=== PATIENT | male | born 1970 | race Two or more races ===

== ENCOUNTER 2022-07-06 10:59 | Inpatient (IN) | payer MEDICAID, OTHER ==
[~2022-07-06] VITALS: Ht 170.2 cm; Wt 93.5 kg
[2022-07-06 13:01] LABS: Urine Bacteria FEW /hpf (None Seen); Urine Blood 3+ /uL (Negative); Urine Mucus FEW (None Seen); Urine Specific Gravity 1.018 (1.001-1.035); Urine WBC 5 /hpf (0 - 3)
[2022-07-06 13:18] LABS: Basophils # (auto) 0.1 10 ^3/uL (0-0.2); Basophils % (auto) 0.6 % (0.0-2.0); Eosinophils # (auto) 0.2 10 ^3/uL (0-0.8); Eosinophils % (auto) 2.6 % (0.0-7.0); Hematocrit 51.6 % (41.0-53.0); Hemoglobin 16.8 g/dL (13.5-17.5); Lymphocytes # (auto) 2.6 10 ^3/uL (0.4-5.4); Lymphocytes % (auto) 27.9 % (10.0-50.0); Mean Corpuscular Hemoglobin 29.5 pg (28.0-32.0); Mean Corpuscular Hgb Conc. 32.6 g/dL (32.0-36.0); Mean Corpuscular Volume 90.6 fL (80.0-100.0); Monocytes # (auto) 0.8 10 ^3/uL (0-1.3); Monocytes % (auto) 8.2 % (0.0-12.0); Neutrophils # (auto) 5.7 10 ^3/uL (1.6-8.6); Neutrophils % (auto) 60.7 % (37.0-80.0); Red Blood Cells 5.69 10^6/uL (4.5-5.90); Red Cell Distribution Width 13.4 % (11.8-14.3); White Blood Cell 9.3 10^3/uL (4.4-10.8)
[2022-07-06 13:31] LABS: Calcium 9.2 mg/dL (8.5-10.1); Potassium 3.9 mmol/L (3.5-5.1)
[2022-07-06 13:34] LABS: BUN/Creatinine Ratio 11.7; Bilirubin, Total 0.5 mg/dL (0.2-1.0); Total Protein 8.1 g/dL (6.4-8.2)
[2022-07-06] MEDS ORDERED: LACTATED RINGER'S 1,000 ML IV ONE (17:00)
[2022-07-06] MEDS ORDERED: TAMSULOSIN HYDROCHLORIDE 0.4 MG CAP PO ONE (17:00)
[2022-07-06] MEDS ORDERED: HYDROcodone-ACET 5/325MG TAB PO ONE (17:00)
[2022-07-06] MEDS ORDERED: KETOROLAC TROMETH 30 MG/ML 1ML VIAL IV ONE (17:00)
[2022-07-06] MEDS ORDERED: cefTRIAXone 1GM/50ML D5W 50 ML IV ONE (17:00)
[2022-07-06] MEDS ORDERED: DOCUSATE SOD 100 MG CAP PO PRN (20:15)
[2022-07-06] MEDS ORDERED: SODIUM CHLORIDE 0.9% 1,000 ML IV SCH (20:15)
[2022-07-06] MEDS ORDERED: ONDANSETRON HCL 4 MG/2 ML VIAL IV PRN (20:15)
[2022-07-07 00:13] VITALS: BP 144/88
[2022-07-07 00:48] VITALS: BP 144/88
[2022-07-07 05:02] VITALS: BP 128/86
[2022-07-07] MEDS: HYDROcodone-ACET 5/325MG TAB PO PRN (05:05)
[2022-07-07 09:00] VITALS: BP 131/83
[2022-07-07] MEDS ORDERED: TAMSULOSIN HYDROCHLORIDE 0.4 MG CAP PO ONE (12:00)
[2022-07-07 13:00] VITALS: BP 128/85
[2022-07-07] MEDS ORDERED: MANNITOL 20% SOLN 100 gm/500ml 100 ML IV ONE (13:30)
[2022-07-07] MEDS: SODIUM CHLORIDE 0.9% 1,000 ML IV SCH ×2 (15:42→22:56)
[2022-07-07 16:48] LABS: INR 0.99 (0.9-1.15); Partial Thromboplastin Time 27.6 sec (24.6-33.4)
[2022-07-07 17:00] VITALS: BP 131/86
[2022-07-07] MEDS: TAMSULOSIN HYDROCHLORIDE 0.4 MG CAP PO SCH (18:01)
[2022-07-08 05:45] LABS: BUN/Creatinine Ratio 12.9; Potassium 3.8 mmol/L (3.5-5.1)
[2022-07-08 05:56] VITALS: BP 146/75
[2022-07-08 06:23] LABS: Basophils # (auto) 0.1 10 ^3/uL (0-0.2); Basophils % (auto) 0.7 % (0.0-2.0); Eosinophils # (auto) 0.4 10 ^3/uL (0-0.8); Eosinophils % (auto) 5.4 % (0.0-7.0); Hematocrit 45.8 % (41.0-53.0); Hemoglobin 15.2 g/dL (13.5-17.5); Lymphocytes # (auto) 2.3 10 ^3/uL (0.4-5.4); Mean Corpuscular Hemoglobin 29.7 pg (28.0-32.0); Mean Corpuscular Hgb Conc. 33.2 g/dL (32.0-36.0); Mean Corpuscular Volume 89.7 fL (80.0-100.0); Monocytes # (auto) 0.6 10 ^3/uL (0-1.3); Monocytes % (auto) 7.5 % (0.0-12.0); Neutrophils # (auto) 4.4 10 ^3/uL (1.6-8.6); Neutrophils % (auto) 56.4 % (37.0-80.0); Nucleated Red Blood Cells % 0.2 %; Red Blood Cells 5.11 10^6/uL (4.5-5.90); Red Cell Distribution Width 13.3 % (11.8-14.3); White Blood Cell 7.7 10^3/uL (4.4-10.8)
[2022-07-08] MEDS: HYDROcodone-ACET 5/325MG TAB PO PRN (06:24)
[2022-07-08 09:00] VITALS: BP 146/75
[2022-07-08] MEDS: SODIUM CHLORIDE 0.9% 1,000 ML IV SCH ×2 (11:08→19:13)
[2022-07-08 13:00] VITALS: BP 139/79
[2022-07-08 17:00] VITALS: BP 139/79
[2022-07-08] MEDS: TAMSULOSIN HYDROCHLORIDE 0.4 MG CAP PO SCH (17:57)
[2022-07-09] MEDS: HYDROcodone-ACET 5/325MG TAB PO PRN (04:26)
[2022-07-09] MEDS: SODIUM CHLORIDE 0.9% 1,000 ML IV SCH ×2 (04:27→14:00)
[2022-07-09 05:49] VITALS: BP_SYST 132; BP_SYST 152; BP_DIAS 100; BP_DIAS 98
[2022-07-09 09:00] VITALS: BP 151/91
[2022-07-09 13:00] VITALS: BP 150/84
[2022-07-09 17:00] VITALS: BP 148/79
[2022-07-09] MEDS: TAMSULOSIN HYDROCHLORIDE 0.4 MG CAP PO SCH (17:46)
[2022-07-09 22:00] VITALS: BP 141/89
[2022-07-10] MEDS: SODIUM CHLORIDE 0.9% 1,000 ML IV SCH
[2022-07-10 05:00] VITALS: BP 145/84
[2022-07-10] MEDS ORDERED: IOHEXOL 180 MG/ML 20ML VIAL IJ ONE (07:53)
[2022-07-10] MEDS ORDERED: ceFAZolin 1GM/50ML 100 ML IV ONE (08:25)
[2022-07-10] MEDS ORDERED: fentaNYL CITRATE 100 MCG/2 ML VL ONE (08:37)
[2022-07-10] MEDS ORDERED: PROPOFOL 10 MG/ML 20 ML IV ONE (08:37)
[2022-07-10] MEDS ORDERED: DexAMETHasone SOD PHOS 10MG/1ML VIAL INJ ONE (08:37)
[2022-07-10] MEDS ORDERED: MEPERIDINE HCL (25 MG/ML) 1ML VIAL ONE (08:37)
[2022-07-10] MEDS ORDERED: MIDAZOLAM HCL 2MG/2ML 2ml VIAL (1mg/ml) ONE (08:37)
[2022-07-10] MEDS ORDERED: LIDOCAINE 2% JELLY 11ml (GLYDO) ONE (08:47)
[2022-07-10 08:52] VITALS: BP 122/82
[2022-07-10] MEDS ORDERED: MORPHINE SULFATE 4 MG/ML SYR/VIAL IV PRN (09:30)
[2022-07-10] MEDS ORDERED: MIDAZOLAM HCL 2MG/2ML 2ml VIAL (1mg/ml) IV PRN (09:30)
[2022-07-10] MEDS ORDERED: MANNITOL FTV 25% 12.5 GM/50 ML 50 ML IV ONE (09:30)
[2022-07-10] MEDS ORDERED: LABETALOL HCL 5 MG/ML 4ML SYRINGE IV PRN (09:30)
[2022-07-10] MEDS ORDERED: HYDROmorphone HCL 2 MG/ML VL/or syr IV PRN (09:30)
[2022-07-10] MEDS ORDERED: ONDANSETRON HCL 4 MG/2 ML VIAL IV PRN (09:30)
[2022-07-10] MEDS ORDERED: ePHEDrine SULFATE 50 MG/ML AMP IV PRN (09:30)
[2022-07-10 13:10] VITALS: BP 130/83
== END 2022-07-10 11:59 | disposition home or self-care (01) | DRG 463 ==
LOC: ER 10:59 → OVERFLOW 20:08 → EAST 23:48
PROVIDERS: ADMIT Nurse Practitioner Family; ATTEND Internal Medicine
PROC: 0TF6XZZ Fragmentation in Right Ureter, External Approach (ICD-10-PCS; principal; 2022-07-10 08:41)
DX: N13.6 Pyonephrosis (principal); E66.9 Obesity, unspecified; R31.9 Hematuria, unspecified; Z87.442 Personal history of urinary calculi; Z68.32 Body mass index [BMI] 32.0-32.9, adult
CPT/HCPCS: 36415; 74176; 80048; 80053; 81001; 82962; 85025; 85610; 85730; 86850; 86900; 86901; 87086; 96361; 96365; 96375; G0378; J0690; J0696; J1100; J1885; J2250; J2704; Q9965